=== PATIENT | male | born 1960 | race Caucasian/White ===

== ENCOUNTER → 2016-09-03 | Outpatient (CLI) | payer BC ==
[2016-09-03 10:23] LABS: BASOPHIL% 0.5 % (0-2.5); EOSINOPHIL# 0.1 X10e3 (0-0.7); EOSINOPHIL% 1.3 % (0.0-7.0); HEMATOCRIT 38.4 % (38.0-50.0); HEMOGLOBIN 13.2 gm/dL (13.0-16.0); LYMPHOCYTE# 1.7 X10e3 (1.0-3.5); MEAN CELL VOLUME 83.9 FL (83-96); MEAN CORPUSCULAR HEMOGLOBIN 28.7 PG (28-34); MEAN CORPUSCULAR HGB CONC 34.3 g/dL (30-36); MEAN PLATELET VOLUME 7.3 FL (6.5-11.5); MONOCYTE# 0.6 X10e3 (0-1.0); MONOCYTE% 10.4 % (3.0-12.0); NEUTROPHIL# 3.5 X10e3 (1.5-7.1); NEUTROPHIL% 58.8 % (40-75); PLATELET COUNT 226 X10e3 (140-420); RED BLOOD COUNT 4.58 X10e (3.90-5.60); RED CELL DISTRIBUTION WIDTH 15.3 % (11.0-15.5); WHITE BLOOD COUNT 5.9 X10e3 (4.0-10.5)
[2016-09-03 10:26] LABS: DIFF IND NO
[2016-09-03 10:36] LABS: INR 2.7; PROTHROMBIN TIME (PATIENT) 29.9 SECONDS (9.6-11.5)
[2016-09-03 10:56] LABS: ALBUMIN SERUM 4.1 g/dL (3.5-5.0); ALKALINE PHOSPHATASE 59 U/L (32-92); ALT (SGPT) 50 U/L (10-40); AST (SGOT) 38 U/L (10-42); BILIRUBIN,TOTAL 0.5 mg/dL (0.2-2.0); BLOOD UREA NITROGEN 26 mg/dL (9-23); CALCIUM SERUM 8.7 mg/dL (8.4-10.2); CARBON DIOXIDE 25 mmol/L (22-31); CHLORIDE 109 mmol/L (100-111); CREATININE SERUM 1.3 mg/dL (0.6-1.4); GLOM FILT RATE Estimated ABOVE60 mL/min (>60); GLUCOSE FASTING 116 mg/dL (70-110); MAGNESIUM 1.7 mg/dL (1.6-3.0); PHOSPHOROUS 3.1 mg/dL (2.5-4.6); POTASSIUM 4.3 mmol/L (3.5-5.1); PROTEIN TOTAL SERUM 7.7 g/dL (6.0-8.3); SODIUM 138 mmol/L (135-145)
[2016-09-03 11:41] LABS: CHOLESTEROL 209 mg/dL (0-200)
[2016-09-03 11:42] LABS: TRIGLYCERIDES 407 mg/dL (10-160)
[2016-09-04 15:38] LABS: FK506 (TACROLIMUS) - JH 5.3 ng/mL (5.0-20.0)
[2016-09-04 15:41] LABS: EVEROLIMUS - JH 4.1 ng/mL (3.0-8.0)
== END | disposition home or self-care (01) ==
LOC: CTPL 09:31
PROVIDERS: Surgery
DX: Z48.23 Encounter for aftercare following liver transplant (principal); Z13.1 Encounter for screening for diabetes mellitus; T45.1X1D Poisoning by antineoplastic and immunosuppressive drugs, accidental (unintentional), subsequent encounter; Z94.4 Liver transplant status; Z79.899 Other long term (current) drug therapy; Z79.01 Long term (current) use of anticoagulants
CPT/HCPCS: 36415; 80053; 80197; 80299; 82465; 83735; 84100; 84478; 85025; 85610

== ENCOUNTER → 2016-10-16 | Outpatient (CLI) | payer BC ==
[2016-10-16 08:11] LABS: BASOPHIL% 0.8 % (0-2.5); EOSINOPHIL# 0.2 X10e3 (0-0.7); EOSINOPHIL% 4.2 % (0.0-7.0); HEMATOCRIT 42.1 % (38.0-50.0); LYMPHOCYTE# 2.2 X10e3 (1.0-3.5); LYMPHOCYTE% 40.1 % (17.0-45.0); MEAN CELL VOLUME 84.5 FL (83-96); MEAN CORPUSCULAR HGB CONC 33.2 g/dL (30-36); MEAN PLATELET VOLUME 7.8 FL (6.5-11.5); MONOCYTE# 0.6 X10e3 (0-1.0); MONOCYTE% 11.9 % (3.0-12.0); NEUTROPHIL# 2.3 X10e3 (1.5-7.1); PLATELET COUNT 211 X10e3 (140-420); RED BLOOD COUNT 4.98 X10e (3.90-5.60); RED CELL DISTRIBUTION WIDTH 15.2 % (11.0-15.5); WHITE BLOOD COUNT 5.4 X10e3 (4.0-10.5)
[2016-10-16 08:19] LABS: DIFF IND NO
[2016-10-16 08:26] LABS: INR 1.9; PROTHROMBIN TIME (PATIENT) 20.6 SECONDS (9.6-11.5)
[2016-10-16 09:19] LABS: ALBUMIN SERUM 4.2 g/dL (3.5-5.0); BILIRUBIN,TOTAL 0.5 mg/dL (0.2-2.0); BUN/CREATININE RATIO 21.66; CALCIUM SERUM 9.2 mg/dL (8.4-10.2); CREATININE SERUM 1.2 mg/dL (0.6-1.4); GLOM FILT RATE Estimated 66.3 mL/min (>60); MAGNESIUM 1.6 mg/dL (1.6-3.0); PHOSPHOROUS 3.4 mg/dL (2.5-4.6); POTASSIUM 3.9 mmol/L (3.5-5.1); PROTEIN TOTAL SERUM 7.8 g/dL (6.0-8.3)
[2016-10-17 14:22] LABS: EVEROLIMUS - JH 4.5 ng/mL (3.0-8.0)
== END | disposition home or self-care (01) ==
LOC: CTPL 07:24
PROVIDERS: Surgery
DX: Z48.23 Encounter for aftercare following liver transplant (principal); B18.1 Chronic viral hepatitis B without delta-agent; Z94.4 Liver transplant status; Z79.899 Other long term (current) drug therapy
CPT/HCPCS: 36415; 80053; 80197; 80299; 82465; 83735; 84100; 84478; 85025; 85610; 87517; 87522; 87806

== ENCOUNTER → 2016-10-29 | Outpatient (CLI) | payer BC ==
--- NOTE | ~2016-10-29 | US85 ---
[facility] A Service of [facility] RADIOLOGY TEXT RESULTS PATIENT: ANGY DAS LOCATION: CNIV : 56 UNIT #: [id number] AGE: [address]: Moreno Lockett MD SEX: M ORDER DR: [id number] [facility] [address] [place], [place] [address] [id number] O MR#: [id number] Acc #: [id number] NAME: ANGY DAS : 1960 SEX: M STUDY DATE/TIME: 10/29/2016 10:51 UNIT: CNIV ROOM: STUDY DESCRIPTION: [facility] [employer] Attending Physician: Moreno Lockett M.D. Referring Physician: Moreno Lockett M.D. Ordering Physician: Moreno Lockett M.D. Primary Care Physician: Primary Care Physician No MEDICAL IMAGING REPORT This report is preliminary unless electronic signature is present EXAM Unilateral right lower extremity venous Doppler DATE OF STUDY 10/29/2016 CLINICAL HISTORY Known history of DVT, taking anticoagulation with persistent pain for 1 year, routine follow up. PROCEDURE Johnson-scale imaging, color-Doppler flow imaging and Doppler waveform analysis. FINDINGS There is occlusive thrombus in the right mid femoral and popliteal veins as well as in the below-knee posterior tibial and peroneal veins, while the common and deep femoral vein and below the anterior tibial veins are patent. The saphenous vein is patent. There is a popliteal fossa Lisa's cyst about 4 cm in size. IMPRESSION Persistent occlusive thrombus in the mid femoral and popliteal veins and below-knee posterior tibial and peroneal veins, though the posterior tibial veins were patent in June 2016. Redemonstrated popliteal fossa Lisa's cyst. Dictated by... David Kraus M.D. THIS IS AN ELECTRONICALLY VERIFIED REPORT David Kraus M.D. at 10/30/2016 9:38 AM [facility] A Service of [facility] RADIOLOGY TEXT RESULTS PATIENT: ANGY DAS LOCATION: CNIV : 56 UNIT #: [id number] AGE: [address]: Moreno Lockett MD SEX: M ORDER DR: TAHIRA/lata TD: 10/29/2016 18:34 JOB #: [id number] MEDICAL IMAGING REPORT Page 1 of 1 COPY
== END | disposition home or self-care (01) ==
LOC: CNIV 10:38
DX: I82.409 Acute embolism and thrombosis of unspecified deep veins of unspecified lower extremity (principal); I82.411 Acute embolism and thrombosis of right femoral vein; I82.441 Acute embolism and thrombosis of right tibial vein; I82.531 Chronic embolism and thrombosis of right popliteal vein; Z94.4 Liver transplant status; Z79.01 Long term (current) use of anticoagulants
CPT/HCPCS: 93971